=== PATIENT | female | born 1950 | race Caucasian/White ===

== ENCOUNTER 2019-01-28 06:32 | Day surgery (SDC) | payer MEDICARE, BC ==
[2019-01-28] MEDS ORDERED: Lidocaine 1% PF 2 ML SDV INJECT ONE (06:33)
[2019-01-28] MEDS ORDERED: Propofol 200 MG/20 ML SDV IV ONE (06:33)
[2019-01-28] MEDS ORDERED: Sodium Chloride 0.9% 10 ML Syringe FLUSH PRN (06:45)
[2019-01-28] MEDS ORDERED: Lactated Ringers 1,000 ML IV SCH (06:45)
[2019-01-28] MEDS ORDERED: Simethicone Drops 40 MG/0.6 ML 30 ML Bottle ONE (08:07)
--- NOTE | 2019-01-28 08:36 | PCM.OPNOTE ---
- General Post-Op/Procedure Note Date of Surgery/Procedure: 01/28/19 Operative Procedure(s): c scope with bx Findings: tortuous colon transverse colon polyp descending colon polyp x2 Pre Op Diagnosis: + colo guard Post-Op Diagnosis: tortuous colon. transverse colon polyp. descending colon polyp x2 Anesthesia Technique: MAC Primary Surgeon: Miguel Khan Anesthesia Provider: Reagan Duarte Complications: None Condition: Good Free Text/Narrative:: see dictation
[2019-01-28 09:31] VITALS: BP 158/87
--- NOTE | 2019-01-28 11:59 | OR ---
DATE OF OPERATION: 01/28/2019 SURGEON: Miguel Khan MD PROCEDURE PERFORMED: Colonoscopy with cold forceps and cold loop snare biopsy. PREOPERATIVE DIAGNOSIS: Positive Cologuard test. POSTOPERATIVE DIAGNOSIS: Colon polyp of the transverse colon and descending colon x2, as well as a very torturous and redundant colon. INDICATIONS FOR PROCEDURE: This is a 68-year-old white female who is referred with the above-mentioned laboratory findings. She was offered and accepted a colonoscopy. PROCEDURE IN DETAIL: After an excellent IV sedation was administered, a digital rectal exam was performed. No marked abnormality was noted. Flexible colonoscope was inserted and advanced to the cecum. Insertion of the scope was rather difficult. The patient has a very redundant colon and rather tortuous. We did reach the cecum. The scope was slowly withdrawn and the following findings were noted. Ascending colon was unremarkable. Transverse colon, small polypoid lesion, biopsied with cold loop snare and retrieved. Due to the tortuosity, especially in the area of the transverse colon, four passes were made along the entire length of the transverse colon to the cecum and back to ensure that we did not miss any other lesions. The descending colon demonstrated what appeared to be two hyperplastic lesions. These were biopsied and submitted in one container. The sigmoid colon was very tortuous. No abnormalities were noted. Rectum was unremarkable. The colon was deflated and the scope was removed. The patient tolerated the procedure well. Given the overall anatomy of the patient, irregardless of the pathology, I am going to recommend that she have a repeat colonoscopy in 3 years. /[id number] /[id number]
== END 2019-01-28 09:18 | disposition home or self-care (01) ==
LOC: FB.SDS 06:32
PROVIDERS: ATTEND Surgery
DX: D12.3 Benign neoplasm of transverse colon (principal); D12.4 Benign neoplasm of descending colon; K63.5 Polyp of colon; K63.89 Other specified diseases of intestine; K21.9 Gastro-esophageal reflux disease without esophagitis; K22.70 Barrett's esophagus without dysplasia; I10 Essential (primary) hypertension; E78.00 Pure hypercholesterolemia, unspecified; E03.9 Hypothyroidism, unspecified; F32.9 Major depressive disorder, single episode, unspecified; F41.9 Anxiety disorder, unspecified; J45.909 Unspecified asthma, uncomplicated; M19.90 Unspecified osteoarthritis, unspecified site; Z88.5 Allergy status to narcotic agent; Z98.84 Bariatric surgery status; Z87.891 Personal history of nicotine dependence; Z85.01 Personal history of malignant neoplasm of esophagus; Z86.010 Personal history of colon polyps; Z79.51 Long term (current) use of inhaled steroids; Z79.899 Other long term (current) drug therapy
CPT/HCPCS: 00811; 36415; 45380; 45385; 84132; 88305; A9270; J2001; J2704; J7120

== ENCOUNTER → 2022-08-17 | Day surgery (SDC) | payer MEDICARE, BC ==
[~2022-08-17] MED LIST: Lactated Ringers 1,000 ML IV SCH; Propofol 200 MG/20 ML SDV IV ONE; Simethicone Drops 40 MG/0.6 ML 30 ML Bottle PO ONE; Sodium Chloride 0.9% 10 ML Syringe FLUSH PRN
[2022-08-17 11:07] VITALS: BP 144/80; PULSE 68
== END ==
LOC: FB.SDS 07:00
PROVIDERS: ATTEND Surgery
DX: Z12.11 Encounter for screening for malignant neoplasm of colon (principal); K63.5 Polyp of colon; K52.9 Noninfective gastroenteritis and colitis, unspecified; F41.9 Anxiety disorder, unspecified; M19.90 Unspecified osteoarthritis, unspecified site; D64.9 Anemia, unspecified; F32.A Depression, unspecified; I10 Essential (primary) hypertension; E03.9 Hypothyroidism, unspecified; G47.33 Obstructive sleep apnea (adult) (pediatric); E55.9 Vitamin D deficiency, unspecified; F17.210 Nicotine dependence, cigarettes, uncomplicated; Z86.010 Personal history of colon polyps; Z79.899 Other long term (current) drug therapy; Z79.890 Hormone replacement therapy; Z88.2 Allergy status to sulfonamides; Z88.6 Allergy status to analgesic agent; Z88.5 Allergy status to narcotic agent; Z88.1 Allergy status to other antibiotic agents; Z90.49 Acquired absence of other specified parts of digestive tract; Z98.890 Other specified postprocedural states; Z90.710 Acquired absence of both cervix and uterus
CPT/HCPCS: 00811-QZ; 88305; A9270-GY; J2704; J7120

== ENCOUNTER 2022-09-16 11:47 | Emergency (ER) | payer BC, MEDICARE ==
[2022-09-16] MEDS ORDERED: Cyclobenzaprine 10 MG Tab PO ONE (12:47)
[2022-09-16] MEDS ORDERED: fentaNYL 100 MCG/2 ML SDV IVPUSH ONE (13:51)
[2022-09-16] MEDS ORDERED: Ondansetron 4 MG/2 ML SDV IVPUSH ONE (13:51)
[2022-09-16] MEDS ORDERED: LORazepam 2 MG/ML SDV IVPUSH ONE (14:35)
[2022-09-16 14:47] LABS: CORONAVIRUS COVID-19 NAA NEGATIVE (NEGATIVE)
[2022-09-16 14:54] VITALS: BP 137/84; PULSE 66
== END 2022-09-16 14:53 ==
LOC: FB.ED 11:47
DX: S72.142A Displaced intertrochanteric fracture of left femur, initial encounter for closed fracture (principal); K21.9 Gastro-esophageal reflux disease without esophagitis; M85.88 Other specified disorders of bone density and structure, other site; F41.8 Other specified anxiety disorders; J45.909 Unspecified asthma, uncomplicated; E78.00 Pure hypercholesterolemia, unspecified; I10 Essential (primary) hypertension; Z88.1 Allergy status to other antibiotic agents; Z88.5 Allergy status to narcotic agent; Z88.6 Allergy status to analgesic agent; Z88.2 Allergy status to sulfonamides; Z79.899 Other long term (current) drug therapy; Z90.49 Acquired absence of other specified parts of digestive tract; Z20.822 Contact with and (suspected) exposure to COVID-19; W19.XXXA Unspecified fall, initial encounter
CPT/HCPCS: 0241U; 73502-LT; 96374; 96375; 99285-25; A9270-GY; J2060; J2405; J3010

== ENCOUNTER 2023-07-19 08:33 | Day surgery (SDC) | payer MEDICARE, BC ==
[~2023-07-19 08:33] MED LIST changes: -Propofol 200 MG/20 ML SDV IV ONE; -Simethicone Drops 40 MG/0.6 ML 30 ML Bottle PO ONE
[2023-07-19] MEDS ORDERED: Lidocaine 2% 5 ML SDV IV ONE (08:34)
[2023-07-19] MEDS ORDERED: Propofol 200 MG/20 ML SDV IV ONE (08:34)
[2023-07-19] MEDS ORDERED: Lidocaine 2% 5 ML SDV ONE (08:34)
[2023-07-19 10:49] VITALS: PULSE 71
[2023-07-19 11:35] VITALS: BP 143/77
== END 2023-07-19 11:25 | disposition home or self-care (01) ==
LOC: FB.SDS 08:33
PROVIDERS: ATTEND Surgery
DX: K22.70 Barrett's esophagus without dysplasia (principal); K20.90 Esophagitis, unspecified without bleeding; K31.84 Gastroparesis; J44.9 Chronic obstructive pulmonary disease, unspecified; I10 Essential (primary) hypertension; F41.9 Anxiety disorder, unspecified; F32.A Depression, unspecified; E03.9 Hypothyroidism, unspecified; F17.210 Nicotine dependence, cigarettes, uncomplicated; Z90.710 Acquired absence of both cervix and uterus; Z98.890 Other specified postprocedural states; Z79.890 Hormone replacement therapy; Z79.51 Long term (current) use of inhaled steroids; Z79.899 Other long term (current) drug therapy; Z88.2 Allergy status to sulfonamides; Z88.1 Allergy status to other antibiotic agents; Z88.5 Allergy status to narcotic agent
CPT/HCPCS: 00731; 88305; 99100; J2704; J7120

== ENCOUNTER 2025-01-08 03:16 | Emergency (ER) | payer MEDICARE, BC ==
[2025-01-08] MEDS: Ondansetron 4 MG/2 ML SDV IVPUSH ONE ×2 (03:38→05:22)
[2025-01-08] MEDS: Sodium Chloride 0.9% 1,000 ML IV ONE (03:38)
[2025-01-08 03:46] LABS: BLOOD UREA NITROGEN,BUN 12 mg/dL (7-18); CALCIUM 9.6 mg/dL (8.6-10.2); CARBON DIOXIDE,CO2 26 mmol/L (21-32); CHLORIDE,CL 102 mmol/L (100-110); ESTIMATED GFR 59 mL/min (>60); GLUCOSE RANDOM 109 mg/dL (80-116); POTASSIUM,K 3.8 mmol/L (3.5-5.3); SODIUM,NA 139 mmol/L (135-145)
[2025-01-08 03:48] LABS: BASOPHILS ABSOLUTE AUTO 0.1 x10-3/uL (0.0-0.1); BASOPHILS PERCENT AUTO 1.5 % (0.2-1.5); EOSINOPHILS ABSOLUTE AUTO 0.5 x10-3/uL (0.0-0.8); EOSINOPHILS PERCENT AUTO 7.7 % (0.6-8.1); HEMATOCRIT 50.2 % (34.2-48.2); HEMOGLOBIN 16.8 g/dL (11.4-15.5); LYMPHOCYTES ABSOLUTE AUTO 1.5 x10-3/uL (1.0-4.4); LYMPHOCYTES PERCENT AUTO 25.3 % (18.4-52.1); MEAN CORPUSCULAR HGB CONC 33.4 g/dL (31.9-34.8); MEAN CORPUSCULAR VOLUME 89.8 fL (76.7-100.5); MEAN PLATELET VOLUME 8.4 fL (7.1-12.4); MONOCYTES ABSOLUTE AUTO 0.5 x10-3/uL (0.3-1.0); NEUTROPHILS ABSOLUTE AUTO 3.4 x10-3/uL (1.5-6.3); NEUTROPHILS PERCENT AUTO 56.5 % (30.8-76.2); PLATELET COUNT,PLT 319 x10(3)uL (151-488); RED BLOOD CELL COUNT 5.59 x10(6)uL (3.60-5.20); RED CELL DISTRIBUTION WIDTH 15.7 % (12.3-16.5)
[2025-01-08] MEDS: fentaNYL 100 MCG/2 ML SDV IVPUSH ONE (03:51)
[2025-01-08 03:52] LABS: ALANINE AMINOTRANSFERASE,ALT 18 U/L (12-36); ALBUMIN 3.8 g/dL (3.2-4.6); ALKALINE PHOSPHATASE 82 IU/L (56-112); ASPARTATE AMNIOTRANSFERASE,AST 18 IU/L (5-25); BILIRUBIN TOTAL 0.4 mg/dL (0.1-1.3); PROTEIN TOTAL,TP 7.5 g/dL (6.0-8.0)
[2025-01-08 03:54] LABS: TROPONIN I 10.2 pg/mL (4.0-60.3)
[2025-01-08 03:56] LABS: BILIRUBIN,URINE NEGATIVE (NEGATIVE); GLUCOSE,URINE NORMAL (NORMAL); KETONES,URINE NEGATIVE (NEGATIVE); LEUKOCYTE ESTERASE,URINE SMALL (NEGATIVE); NITRITE,URINE NEGATIVE (NEGATIVE); OCCULT BLOOD,URINE LARGE (NEGATIVE); PROTEIN,URINE 30 mg/dL (NEGATIVE); UROBILINOGEN,URINE NORMAL (NEGATIVE)
[2025-01-08] MEDS: Prochlorperazine 10 MG/2 ML SDV IVPUSH ONE (03:59)
[2025-01-08 04:03] LABS: APPEARANCE,URINE SLIGHTLY CLOUDY (CLEAR); BACTERIA,URINE FEW (NS); CALCIUM OXALATE CRYSTALS,URINE FEW (NS); COLOR,URINE YELLOW (YELLOW); RBC,URINE 30-40 (0-5); SQUAMOUS EPITHELIAL CELLS,UR FEW (NS,R,O); WBC,URINE 0-5 (0-5)
[2025-01-08] MEDS: Iopamidol 755 Mg/ML 100 ML Bottle IV SCH (04:42)
[2025-01-08] MEDS: LORazepam 2 MG/ML SDV IVPUSH ONE (04:49)
[2025-01-08] MEDS: Ketorolac 30 MG/ML SDV IVPUSH ONE (05:21)
[2025-01-08] MEDS: cefTRIAXone 2 GM Vial IVPUSH ONE (05:22)
[2025-01-08] MEDS: diphenhydrAMINE 50 MG/ML SDV IVPUSH ONE (05:41)
[2025-01-08] MEDS: amLODIPine 5 MG Tab PO ONE (08:07)
[2025-01-08] MEDS: Tamsulosin 0.4 MG Cap.ER PO ONE (08:07)
[2025-01-08 12:26] VITALS: BP 149/87; PULSE 97
== END 2025-01-08 10:15 | disposition home or self-care (01) ==
LOC: FB.ED 03:16
DX: N20.2 Calculus of kidney with calculus of ureter (principal); I10 Essential (primary) hypertension; K21.9 Gastro-esophageal reflux disease without esophagitis; E03.9 Hypothyroidism, unspecified; F17.210 Nicotine dependence, cigarettes, uncomplicated; Z88.8 Allergy status to other drugs, medicaments and biological substances; Z88.1 Allergy status to other antibiotic agents; Z88.6 Allergy status to analgesic agent; Z88.2 Allergy status to sulfonamides; Z79.899 Other long term (current) drug therapy; Z79.890 Hormone replacement therapy; Z90.49 Acquired absence of other specified parts of digestive tract; Z90.710 Acquired absence of both cervix and uterus
CPT/HCPCS: 74177; 80053; 81001; 83690; 84484; 85025; 87086; 87088; 87186; 93005; 93010; 96361; 96374; 96375; 96376; 99284-25; 99285; A9270-GY; J0696; J0780; J1200; J1885; J2060; J2405; J3010; J7030; Q9967

== ENCOUNTER 2025-02-28 07:12 | Emergency (ER) | payer MEDICARE, BC ==
[2025-02-28 08:49] VITALS: BP 132/65; PULSE 68
== END 2025-02-28 08:43 | disposition home or self-care (01) ==
LOC: FB.ED 07:12
DX: S20.219A Contusion of unspecified front wall of thorax, initial encounter (principal); I10 Essential (primary) hypertension; E03.9 Hypothyroidism, unspecified; J45.909 Unspecified asthma, uncomplicated; Z88.5 Allergy status to narcotic agent; Z88.8 Allergy status to other drugs, medicaments and biological substances; Z88.2 Allergy status to sulfonamides; Z79.890 Hormone replacement therapy; Z79.899 Other long term (current) drug therapy; W07.XXXA Fall from chair, initial encounter
CPT/HCPCS: 71100-LT; 71101-LT; 99283

== ENCOUNTER 2025-06-14 18:12 | Emergency (ER) | payer MEDICARE, BC ==
[2025-06-14 19:11] VITALS: BP 112/85; PULSE 62
== END 2025-06-14 20:30 | disposition home or self-care (01) ==
LOC: FB.ED 18:12
DX: M10.9 Gout, unspecified (principal); E03.9 Hypothyroidism, unspecified; E78.00 Pure hypercholesterolemia, unspecified; I10 Essential (primary) hypertension; F17.200 Nicotine dependence, unspecified, uncomplicated; Z88.5 Allergy status to narcotic agent; Z88.2 Allergy status to sulfonamides; Z79.899 Other long term (current) drug therapy; Z79.890 Hormone replacement therapy; Z90.710 Acquired absence of both cervix and uterus; Z90.49 Acquired absence of other specified parts of digestive tract
CPT/HCPCS: 73630-LT; 99283; A9270-GY